=== PATIENT | female | born 1930 | race Caucasian/White ===

== ENCOUNTER → 2016-12-28 | Outpatient (CLI) | payer OTHER, MEDICARE | LOC: MMPC 09:00 | PROVIDERS: ATTEND Nurse Practitioner Family | DX: E03.9 Hypothyroidism, unspecified (principal); R41.3 Other amnesia; Z85.038 Personal history of other malignant neoplasm of large intestine; Z96.653 Presence of artificial knee joint, bilateral | CPT/HCPCS: G0439 ==

== ENCOUNTER → 2016-12-29 | Outpatient (CLI) | payer OTHER, MEDICARE ==
[2016-12-29 10:58] LABS: BASOPHILS # (AUTO) 0.07 10*3/UL; EOSINOPHILS # (AUTO) 0.24 10*3/UL; EOSINOPHILS % (AUTO) 3.6 % (0-8); HEMATOCRIT 44.6 % (37.0-47.0); HEMOGLOBIN 14.4 g/dL (12.0-16.0); LYMPHOCYTES # (AUTO) 1.58 10*3/uL; MEAN CORPUSCULAR HEMOGLOBIN 29.4 PG (27-31); MEAN CORPUSCULAR HGB CONC 32.3 g/dL (33-37); MEAN PLATELET VOLUME 9.6 FL (7.4-12.2); MONOCYTES # (AUTO) 0.58 10*3/UL (0.3-0.8); MONOCYTES % (AUTO) 8.6 % (5-15); NEUTROPHILS # (AUTO) 4.27 10*3/UL; NEUTROPHILS % (AUTO) 63.3 % (50-80)
[2016-12-29 11:09] LABS: BUN/CREATININE RATIO 27.14 (6-20); CALCIUM 9.5 mg/dL (8.7-10.7); CHOL/HDL RATIO 3.23 RATIO (0-4.0); LDL CHOLESTEROL,CALCULATED 138.6 mg/dL; SERUM ALBUMIN 4.1 g/dL (3.5-4.8)
[2016-12-29 11:14] LABS: PLATELET MORPHOLOGY COMMENT NORMAL MORPHOLOGY (NORM); RBC MORPHOLOGY COMMENT NORMAL MORPHOLOGY (NORM); WBC MORPHOLOGY COMMENT NORMAL MORPHOLOGY (NORM)
== END ==
LOC: LAB 10:02
PROVIDERS: ATTEND Nurse Practitioner Family
DX: E03.9 Hypothyroidism, unspecified (principal); R41.3 Other amnesia; Z85.038 Personal history of other malignant neoplasm of large intestine; Z96.653 Presence of artificial knee joint, bilateral
CPT/HCPCS: 80053; 80061; 84443; 85025